=== PATIENT | female | born 1975 | race Caucasian/White ===

== ENCOUNTER 2023-10-22 21:19 | Emergency (ER) | payer OTHER ==
[~2023-10-22] VITALS: Ht 157.5 cm; Wt 111.1 kg
[2023-10-22 21:29] VITALS: PULSE 79; RESP 18; TEMP 98.5; O2SAT 96
[2023-10-22] MEDS ORDERED: CLINDAMYCIN HC300 MG PO (21:40)
[2023-10-22] MEDS: Clindamycin INJ 300 MG/50 ML 50 ML IV SCH (21:57)
[2023-10-22] MEDS: Clindamycin INJ 300 MG/50 ML 50 ML IV ONE (22:22)
== END 2023-10-22 22:45 | disposition home or self-care (01) ==
LOC: FSED 21:23
DX: L03.116 Cellulitis of left lower limb (principal)
CPT/HCPCS: 80053; 85025; 99283

== ENCOUNTER 2024-02-07 18:48 | Emergency (ER) | payer BC, OTHER ==
[~2024-02-07] VITALS: Ht 157.5 cm; Wt 117.5 kg
[~2024-02-07 18:48] MED LIST: CLINDAMYCIN HC300 MG PO
[2024-02-07 19:18] VITALS: PULSE 79; RESP 18; TEMP 98.8
[2024-02-07] MEDS: MAGNESIUM/ALUMINUM/SIMETHICONE 30 ML UDC PO ONE (20:39)
[2024-02-07] MEDS: ONDANSETRON HCL INJ 2MG/ML 2ML 2 MG/ML VIAL IV ONE (20:40)
[2024-02-07] MEDS: KETOROLAC TROMETHAMINE 30 MG/ML VIAL IV ONE (20:41)
[2024-02-07] MEDS: LACTATED RINGER'S 1,000 ML INJ ONE (20:41)
[2024-02-07] MEDS: FAMOTIDINE 20 MG/2 ML VIAL IV ONE (20:41)
[2024-02-07] MEDS ORDERED: ONDANSETRON HCL INJ 2MG/ML 2ML 2 MG/ML VIAL ONE (20:45)
[2024-02-07] MEDS ORDERED: OMEPRAZOLE40 MG PO (22:29)
[2024-02-07] MEDS ORDERED: MAALOX MAXIMUM355 ML PO (22:29)
[2024-02-07] MEDS ORDERED: ONDANSETRON ODT4 MG PO (22:29)
[2024-02-07 23:35] VITALS: BP 130/14; PULSE 76; RESP 18; TEMP 98.6; O2SAT 94
== END 2024-02-07 23:35 | disposition home or self-care (01) ==
LOC: FSED 19:00
DX: R11.2 Nausea with vomiting, unspecified (principal); K29.70 Gastritis, unspecified, without bleeding; R10.13 Epigastric pain; I10 Essential (primary) hypertension; K76.0 Fatty (change of) liver, not elsewhere classified; R94.31 Abnormal electrocardiogram [ECG] [EKG]
CPT/HCPCS: 74176; 80048; 80076; 81003; 82553; 84484; 85025; 93005; 96360; 96374; 96375; 99284; J1885; J2405; J7121